=== PATIENT | male | born 1970 | race Caucasian/White ===

== ENCOUNTER 2016-08-21 17:44 | Emergency (ER) | payer BC ==
[2016-08-21 17:53] VITALS: BP 102/71
[2016-08-21] MEDS ORDERED: Ibuprofen TAB* 400 MG PO ONE (18:09)
--- NOTE | 2016-08-21 18:17 | UC ---
Hip/Pelvis Pain - HPI Summary HPI Summary: Patient was doing leg press exercise with alot of weight, heard a thud, with extreme pain and then he passed out. woke up a few minutes later and the building analyst/supervisor helped him up, was able to walk in. lotf of pain in the left inguinal canal, cant flex hip - History Of Current Complaint Chief Complaint: UCLowerExtremity Stated Complaint: LEFT HIP PAIN,INJURY Time Seen by Provider: 08/21/16 18:02 Hx Obtained From: Patient Onset/Duration: Sudden Onset, Lasting Minutes Timing: Constant Severity Initially: Severe Severity Currently: Severe Pain Intensity: 9 Pain Scale Used: 0-10 Numeric Location: Discrete At: - left inguinal canal Character Of Pain: Sharp, Aching, Throbbing Aggravating Factor(s): Movement, Weight Bearing Alleviating Factor(s): Nothing - Allergies/Home Medications Allergies/Adverse Reactions: Allergies Allergy/AdvReac Type Severity Reaction Status Date / Time Acetaminophen Allergy Itching Verified 08/21/16 17:53 [From Lorcet ] Hydrocodone Allergy Itching Verified 08/21/16 17:53 [From Lorcet 10] Home Medications: Home Medications Omeprazole CAP* [Prilosec CAP* 20 MG] 20 mg PO DAILY 08/21/16 [History Confirmed 08/21/16] PMH/Surg Hx/FS Hx/Imm Hx Previously Healthy: Yes Cardiovascular History Of: Reports: Cardiac Disorders - ejection factor is low - Surgical History Surgical History: Yes Surgery Procedure, Year, and Place: Right shoulder rotator cuff 2002. eyes corneal transplant 2001, 2003 - Family History Known Family History: Positive: Hypertension - Social History Alcohol Use: Rare Substance Use Type: None Smoking Status (MU): Never Smoked Tobacco Review of Systems Constitutional: Negative Skin: Negative Eyes: Negative ENT: Negative Respiratory: Negative Cardiovascular: Negative Gastrointestinal: Negative Genitourinary: Negative Motor: Negative Neurovascular: Negative Musculoskeletal: Arthralgia, Decreased ROM, Myalgia Neurological: Negative Psychological: Negative All Other Systems Reviewed And Are Negative: Yes Physical Exam Triage Information Reviewed: Yes Appearance: Well-Appearing, Well-Nourished, Pain Distress Vital Signs: Initial Vital Signs Temp 97.4 F 08/21/16 17:49 Pulse 99 08/21/16 17:49 Resp 18 08/21/16 17:49 BP 102/71 08/21/16 17:49 Pulse Ox 98 08/21/16 17:49 Vital Signs Reviewed: Yes Eye Exam: Normal Eyes: Positive: Conjunctiva Clear ENT Exam: Normal ENT: Positive: Normal ENT inspection, Hearing grossly normal, Pharynx normal, TMs normal Dental Exam: Normal Neck exam: Normal Neck: Positive: Supple, Nontender, No Lymphadenopathy Respiratory Exam: Normal Respiratory: Positive: Chest non-tender, Lungs clear, Normal breath sounds Cardiovascular Exam: Normal Cardiovascular: Positive: RRR, No Murmur, Pulses Normal Abdominal Exam: Normal Abdomen Description: Positive: Nontender, No Organomegaly, Soft Bowel Sounds: Positive: Present Musculoskeletal: Positive: Other: - cant flex or ext hip, external rot is painful, can internally rotate easily. no palpable masses in inguinal canal. no palpable deformity over the greater trochanter, patient has difficulty sitting Neurological Exam: Normal Neurological: Positive: Alert, Muscle Tone Normal Psychological Exam: Normal Skin Exam: Normal Hip Injury Course/Dx - Course Course Of Treatment: hx obtained, exam performed, meds given for pain. xray obtained, neg for fracture. - Differential Dx/Diagnosis Differential Diagnosis/HQI/PQRI: Contusion, Dislocation, Fracture, Sprain, Strain, Other - hernia Provider Diagnoses: hip pain. left groin strain Discharge - Discharge Plan Condition: Stable Disposition: HOME Patient Education Materials: Groin Strain (ED) Forms: *Work Release Referrals: Ozzie Randolph DO [Primary Care Provider] - Additional Instructions: Follow up with your othopedic Dr orozco in 1 week if symptoms are not improving. Rest, Ice use the crutches and work back into full weight bearing.
--- NOTE | 2016-08-21 18:53 | RAD ---
Indication: LEFT hip pain following injury with possible subluxation. Comparison: None. Technique: AP pelvis and AP and frog-leg lateral views LEFT hip. Report: The LEFT hip is normally located. No fracture of the LEFT proximal femur or pelvis or pelvic joint diastases. Preserved hip joint spaces. Unremarkable soft tissue contours. IMPRESSION: Negative LEFT hip radiographic series.
== END 2016-08-21 19:08 | disposition home or self-care (01) ==
LOC: UCCORT 17:44
DX: S39.011A Strain of muscle, fascia and tendon of abdomen, initial encounter (principal); X58.XXXA Exposure to other specified factors, initial encounter; Y93.B1 Activity, exercise machines primarily for muscle strengthening; Y92.9 Unspecified place or not applicable; M25.552 Pain in left hip; Z88.6 Allergy status to analgesic agent; Z88.5 Allergy status to narcotic agent
CPT/HCPCS: 99213; A9270-GY; G0463

== ENCOUNTER 2017-02-22 15:31 | Emergency (ER) | payer BC ==
[2017-02-22 15:41] VITALS: BP 114/79
--- NOTE | 2017-02-22 16:01 | UC ---
Elbow Pain - HPI Summary HPI Summary: hit left elbow 1/2 hour ago---left elbow bursa swelling - History of Current Complaint Chief Complaint: UCUpperExtremity Stated Complaint: LEFT ELBOW INJURY Time Seen by Provider: 02/22/17 15:34 Hx Obtained From: Patient Mechanism of Injury: hit elbow under the stairs while working Onset/Duration: Hours - 1/2 Severity Initially: Moderate Severity Currently: Moderate Pain Intensity: 4 Pain Scale Used: 0-10 Numeric Location Of Pain: Is Discrete @ - left elbow Aggravating Factor(s): Movement Alleviating Factor(s): Nothing Associated Signs And Symptoms: Positive: Swelling - Allergies/Home Medications Allergies/Adverse Reactions: Allergies Allergy/AdvReac Type Severity Reaction Status Date / Time Hydrocodone Allergy Itching Verified 02/22/17 15:41 [From Tamy ] PMH/Surg Hx/FS Hx/Imm Hx Previously Healthy: No Endocrine History: Hypothyroidism, Dyslipidemia Cardiovascular History: Cardiac Disease - Surgical History Surgical History: Yes Surgery Procedure, Year, and Place: Right shoulder rotator cuff 2002. eyes corneal transplant 2001, 2003 - Family History Known Family History: Positive: Hypertension - Social History Occupation: Employed Full-time Lives: With Family Alcohol Use: Rare Substance Use Type: None Smoking Status (MU): Never Smoked Tobacco Review of Systems Constitutional: Negative Skin: Negative Eyes: Negative ENT: Negative Respiratory: Negative Cardiovascular: Negative Gastrointestinal: Negative Genitourinary: Negative Motor: Negative Neurovascular: Negative Musculoskeletal: Negative, Arthralgia - left elbow Neurological: Negative Psychological: Negative All Other Systems Reviewed And Are Negative: Yes Physical Exam Triage Information Reviewed: Yes Appearance: Well-Appearing, No Pain Distress, Well-Nourished Vital Signs Reviewed: Yes Eye Exam: Normal Eyes: Positive: Conjunctiva Clear ENT Exam: Normal ENT: Positive: Normal ENT inspection, Hearing grossly normal, Pharynx normal, Pharyngeal erythema, Nasal congestion Dental Exam: Normal Neck exam: Normal Neck: Positive: Supple, Nontender Respiratory Exam: Normal Respiratory: Positive: Chest non-tender, Lungs clear, Normal breath sounds, No respiratory distress, No accessory muscle use Cardiovascular Exam: Normal Cardiovascular: Positive: RRR, No Murmur, Pulses Normal, Brisk Capillary Refill Musculoskeletal Exam: Other Musculoskeletal: Positive: Strength Intact, ROM Intact, Edema @ - left elbow bursal Neurological Exam: Normal Neurological: Positive: Alert, Muscle Tone Normal Psychological Exam: Normal Skin Exam: Normal Diagnostics - Radiology No standard instances Xray Interpretation: Positive (See Comments) - soft tissue swelling Radiology Interpretation Completed By: ED Physician Re-Evaluation - Re-Evaluation First Eval Change: Improved - júnior wrap applied n/m/c/ intact Elbow Pain Course/Dx - Course Course Of Treatment: rice, júnior, ibuprofen, keflex if erythema develops, follow this week with ----soon if erythema develops - Differential Dx/Diagnosis Differential Diagnosis/HQI/PQRI: Bursitis, Cellulitis, Fracture (Closed), Sprain , Strain Provider Diagnoses: Left traumatic olecranon bursitis Discharge - Discharge Plan Condition: Stable Disposition: HOME Prescriptions: Cephalexin CAP* [Keflex CAP*] 500 mg PO QID #28 cap Patient Education Materials: Cephalexin (By mouth), Ibuprofen (By mouth), Elbow Bursitis (ED) Referrals: Ronald Gabriel MD [Medical Doctor] - 1 Week
--- NOTE | 2017-02-22 16:16 | RAD ---
INDICATION: Left elbow injury. TECHNIQUE: 4 views of the left elbow were obtained. FINDINGS: There is focal soft tissue swelling present posterior to the olecranon process. The bones are normal alignment. No joint effusion or fracture is seen. IMPRESSION: SOFT TISSUE SWELLING, NO FRACTURE IS SEEN.
== END 2017-02-22 16:33 | disposition home or self-care (01) ==
LOC: UCCORT 15:31
DX: M70.22 Olecranon bursitis, left elbow (principal)
CPT/HCPCS: 99212; G0463